=== PATIENT | female | born 1960 | race Two or more races ===

== ENCOUNTER 2024-05-21 10:43 | Inpatient (IN) | payer MEDICARE, OTHER ==
[~2024-05-21] VITALS: Ht 162.6 cm; Wt 102.1 kg
[2024-05-21 11:34] LABS: CALCIUM, SERUM 8.9 mg/dL (8.5-10.1); CARBON DIOXIDE 26 mmol/L (21-32); CHLORIDE 106 mmol/L (98-107); CREATININE 0.9 mg/dL (0.6-1.3); GLUCOSE 94 mg/dL (74-106); POTASSIUM 5.3 mmol/L (3.5-5.1); SODIUM SERUM 136 mmol/L (136-145); UREA NITROGEN, BLOOD 27 mg/dL (7-18)
[2024-05-21 11:37] LABS: ALCOHOL, BLOOD < 3 mg/dL (0-10)
[2024-05-21 11:38] LABS: BASOPHILS # (AUTO) 0.1 K/uL (0.0-0.2); BASOPHILS % (AUTO) 0.5 % (0.0-2.0); EOSINOPHILS # (AUTO) 0.2 K/uL (0.0-0.7); EOSINOPHILS % (AUTO) 1.2 % (0.0-6.0); HEMATOCRIT 43 % (33-45); HEMOGLOBIN 13.9 g/dL (11.5-14.8); LYMPHOCYTES # (AUTO) 1.9 K/uL (0.8-4.8); LYMPHOCYTES % (AUTO) 13.5 % (20.0-44.0); MEAN CORPUSCULAR HEMOGLOBIN 29 PG (26.0-33.0); MEAN CORPUSCULAR HGB CONC 33 g/dl (31.0-36.0); MEAN CORPUSCULAR VOLUME 87 fL (82-100); MONOCYTES # (AUTO) 0.8 K/uL (0.1-1.30); MONOCYTES % (AUTO) 5.8 % (2.0-12.0); NEUTROPHILS # (AUTO) 11.1 K/uL (1.8-8.9); PLATELET COUNT (AUTO) 238 K/uL (150-450); RED BLOOD CELL COUNT(AUTO) 4.86 MIL/uL (4.0-5.2); RED CELL DISTRIBUTION WIDTH 14.8 % (11.5-15.0); WHITE BLOOD COUNT (AUTO) 14.1 K/uL (4.3-11.0)
[2024-05-21 11:39] LABS: ALANINE AMINOTRANSFERASE 19 U/L (12-78); ALCOHOL, BLOOD < 3 mg/dL (0-10); ALKALINE PHOSPHATASE 140 U/L (46-116); ASPARTATE AMINOTRANSFERASE 29 U/L (15-37); BILIRUBIN,TOTAL 0.7 mg/dL (0.2-1.0); TOTAL PROTEIN, SERUM 7.2 g/dL (6.4-8.2)
[2024-05-21 11:40] LABS: SALICYLATE 0.2 mg/dL (2.8-20.0)
[2024-05-21] MEDS ORDERED: IOHEXOL-300 100 ML VIAL IV ONE (13:03)
[2024-05-21] MEDS ORDERED: IV NS 0.9% 250 ML IV ONE (13:04)
[2024-05-21 13:18] LABS: ALBUMIN 3.1 g/dL (3.4-5.0)
[2024-05-21] MEDS ORDERED: CITA20TA16 PO (13:21)
[2024-05-21] MEDS ORDERED: CLOP75TA15 PO (13:21)
[2024-05-21] MEDS ORDERED: TRAZ-252 PO (13:21)
[2024-05-21] MEDS ORDERED: BACL20TA PO (13:21)
[2024-05-21] MEDS ORDERED: ASPI-1169 PO (13:21)
[2024-05-21] MEDS ORDERED: PANT20TA2 PO (13:21)
[2024-05-21] MEDS ORDERED: BUPR100T7 PO (13:21)
[2024-05-21] MEDS ORDERED: ATOR80TA PO (13:21)
[2024-05-21 13:28] LABS: ACETAMINOPHEN <10 ug/ml (10-30); BILIRUBIN,DIRECT 0.1 mg/dL (0.0-0.2)
[2024-05-21] MEDS: PIPERACILLIN /TAZOBACTAM 3.375 G in IV D5W 50 ML IV ONE (13:30)
[2024-05-21 13:50] LABS: APPEARANCE,URINE SLIGHTLY CLOUDY (CLEAR); BILIRUBIN,URINE NEGATIVE (NEGATIVE); BLOOD, URINE NEGATIVE Ery/uL (NEGATIVE); COLOR,URINE YELLOW (YELLOW); KETONES,URINE NEGATIVE (NEGATIVE); LEUKOCYTE ESTERASE ,URINE 1+ (NEGATIVE); NITRITE, URINE NEGATIVE (NEGATIVE); PROTEIN,URINE NEGATIVE (NEGATIVE); UGLUCOSE NEGATIVE (NEGATIVE); UROBILINOGEN,URINE 0.2 EU/dL (0.2)
[2024-05-21] MEDS ORDERED: SODIUM ZIRCONIUM CYCLOSILICATE 10 GM POWD.PACK ONE (13:58)
[2024-05-21] MEDS ORDERED: PIPERACI/TAZO 3.375GM/D5W 50ML PB IV ONE (13:58)
[2024-05-21] MEDS ORDERED: ACETAMINOPHEN 325 MG TABLET PO PRN (14:00)
[2024-05-21] MEDS: SODIUM ZIRCONIUM CYCLOSILICATE 5 GM POWD.PACK PO ONE (14:00)
[2024-05-21] MEDS ORDERED: ONDANSETRON HCL/PF 4 MG/2 ML VIAL IVP PRN (14:00)
[2024-05-21] MEDS ORDERED: hydrALAZINE HCL IV 20 MG VIAL IV PRN (14:00)
[2024-05-21] MEDS ORDERED: MORPHINE SULFATE INJ 2 MG/ML DISP.SYRIN IV PRN (14:00)
[2024-05-21] MEDS ORDERED: SODIUM ZIRCONIUM CYCLOSILICATE 5 GM POWD.PACK ONE (14:03)
[2024-05-21 14:09] LABS: AMPHETAMINE, URINE NEGATIVE (NEGATIVE); BARBITURATE, URINE NEGATIVE (NEGATIVE); BENZODIAZEPINE, URINE NEGATIVE (NEGATIVE); COCCAINE, URINE NEGATIVE (NEGATIVE); OPIATE, URINE NEGATIVE (NEGATIVE); PHENCYCLIDINE SCREEN,URINE NEGATIVE (NEGATIVE)
[2024-05-21 14:31] LABS: CANNABINOID, URINE POSITIVE (NEGATIVE)
[2024-05-21 14:40] LABS: ADD URINE CULTURE YES; BACTERIA,URINE Many /HPF (None Seen); RBC,URINE 0-2 /HPF (0-2); WBC,URINE 21-50 /HPF (0-3)
[2024-05-21 17:20] VITALS: BP 120/68; TEMP 98.2; O2SAT 96
[2024-05-21] MEDS: VANCOMYCIN 1 GM in IV D5W 250ml IV ONE ×2 (18:03→19:11)
[2024-05-21 20:00] VITALS: BP 114/58; TEMP 98.1; O2SAT 96
[2024-05-21] MEDS: CEFEPIME 2 GM in IV D5W 100 ML IV SCH (20:23)
[2024-05-21] MEDS: buPROPion SR 100 MG TABLET.ER PO SCH (21:40)
[2024-05-21] MEDS: TRAZODONE 50 MG TABLET PO SCH (21:41)
[2024-05-21] MEDS: ATORVASTATIN 40 MG TABLET PO SCH (21:41)
[2024-05-21] MEDS: HEPARIN SODIUM, PORCINE 5000 UNITS/1 ML VIAL SQ SCH (21:42)
[2024-05-22] VITALS: BP 113/70; TEMP 98.1; O2SAT 97
[2024-05-22 04:00] VITALS: BP 112/70; TEMP 98.1; O2SAT 98
[2024-05-22] MEDS: VANCOMYCIN 1 GM in IV D5W 250ml IV SCH (05:01)
[2024-05-22 07:39] LABS: BASOPHILS % (AUTO) 0.4 % (0.0-2.0); EOSINOPHILS # (AUTO) 0.1 K/uL (0.0-0.7); EOSINOPHILS % (AUTO) 2.2 % (0.0-6.0); HEMATOCRIT 40 % (33-45); HEMOGLOBIN 13.1 g/dL (11.5-14.8); LYMPHOCYTES # (AUTO) 0.9 K/uL (0.8-4.8); LYMPHOCYTES % (AUTO) 14.1 % (20.0-44.0); MEAN CORPUSCULAR HEMOGLOBIN 28 PG (26.0-33.0); MEAN CORPUSCULAR HGB CONC 33 g/dl (31.0-36.0); MEAN CORPUSCULAR VOLUME 87 fL (82-100); MONOCYTES # (AUTO) 0.4 K/uL (0.1-1.30); MONOCYTES % (AUTO) 6.2 % (2.0-12.0); NEUTROPHILS # (AUTO) 4.7 K/uL (1.8-8.9); NEUTROPHILS % (AUTO) 77.1 % (43.0-81.0); PLATELET COUNT (AUTO) 208 K/uL (150-450); RED BLOOD CELL COUNT(AUTO) 4.66 MIL/uL (4.0-5.2); RED CELL DISTRIBUTION WIDTH 14.8 % (11.5-15.0); WHITE BLOOD COUNT (AUTO) 6.1 K/uL (4.3-11.0)
[2024-05-22 07:46] LABS: ALBUMIN 2.8 g/dL (3.4-5.0); BILIRUBIN,TOTAL 0.6 mg/dL (0.2-1.0); CALCIUM, SERUM 8.8 mg/dL (8.5-10.1); MAGNESIUM 1.9 mg/dL (1.8-2.4); PHOSPHORUS 3.1 mg/dL (2.5-4.9); POTASSIUM 4.1 mmol/L (3.5-5.1); TOTAL PROTEIN, SERUM 6.4 g/dL (6.4-8.2)
[2024-05-22 08:00] VITALS: BP 137/84; TEMP 98.2; O2SAT 96
[2024-05-22] MEDS: CITALOPRAM HYDROBROMIDE 20 MG TABLET PO SCH (08:18)
[2024-05-22] MEDS: PANTOPRAZOLE 40 MG TABLET.DR PO SCH (08:18)
[2024-05-22] MEDS: ASPIRIN 81 MG TAB.CHEW PO SCH (08:18)
[2024-05-22] MEDS: CLOPIDOGREL BISULFATE 75 MG TABLET PO SCH (08:18)
[2024-05-22] MEDS: BACLOFEN (10 MG) 10 MG TABLET PO PRN (10:11)
[2024-05-22] MEDS ORDERED: LEVO750T46 PO ×2 (10:49→16:31)
[2024-05-22 12:00] VITALS: BP 127/92; TEMP 98.4; O2SAT 99
== END 2024-05-22 17:32 | DRG 871 ==
LOC: ER 10:52 → TELE 14:14 → TELE1 15:57
PROVIDERS: ADMIT Internal Medicine; ATTEND Internal Medicine
DX: A41.9 Sepsis, unspecified organism (principal); J12.9 Viral pneumonia, unspecified; J96.01 Acute respiratory failure with hypoxia; N39.0 Urinary tract infection, site not specified; E44.1 Mild protein-calorie malnutrition; I69.354 Hemiplegia and hemiparesis following cerebral infarction affecting left non-dominant side; E87.5 Hyperkalemia; E88.09 Other disorders of plasma-protein metabolism, not elsewhere classified; G47.00 Insomnia, unspecified; G93.89 Other specified disorders of brain; I10 Essential (primary) hypertension; Z20.822 Contact with and (suspected) exposure to COVID-19; I25.10 Atherosclerotic heart disease of native coronary artery without angina pectoris; E78.5 Hyperlipidemia, unspecified; F12.10 Cannabis abuse, uncomplicated; B96.4 Proteus (mirabilis) (morganii) as the cause of diseases classified elsewhere; Z66 Do not resuscitate
CPT/HCPCS: 36415; 70450-TC; 71045-TC; 71260-TC; 80048-TC; 80053-TC; 80076-TC; 81001; 83605-TC; 83735-TC; 84100-TC; 84443-TC; 84484-TC; 85025-TC; 87040-TC; 87081-TC; 87086-TC; 87186-TC; 97110-TC; 97116-TC; 97530-TC; 97535-TC; A4223; G0378; G0480; J0692; J1644; J2543; J3370; J7050; J7060; Q9967

== ENCOUNTER 2024-05-22 16:18 | Inpatient (IN) | payer MEDICARE, OTHER ==
[~2024-05-22] VITALS: Ht 162.6 cm; Wt 104.8 kg
[2024-05-22 16:00] VITALS: BP 126/63; TEMP 98; O2SAT 97
[~2024-05-22 16:18] MED LIST: ASPI-1169 PO; ATOR80TA PO; BACL20TA PO; BUPR100T7 PO; CITA20TA16 PO; CLOP75TA15 PO; LEVO750T46 PO; PANT20TA2 PO; TRAZ-252 PO
[2024-05-22] MEDS ORDERED: LEVO750T46 PO (16:31)
[2024-05-22] MEDS ORDERED: MAG HYDROX/AL HYDROX/SIMETH 30 ML UDC PO PRN (17:00)
[2024-05-22] MEDS ORDERED: ACETAMINOPHEN 325 MG TABLET PO PRN (17:00)
[2024-05-22 17:20] VITALS: BP 126/63; TEMP 98; O2SAT 97
[2024-05-22] MEDS: BLOOD SUGAR DIAGNOSTIC 1 EACH STRIP IN ONE (17:36)
[2024-05-22] MEDS ORDERED: Z GUARD REMEDY 4 OZ OINT TP PRN (19:00)
[2024-05-22 20:07] VITALS: BP 118/79; TEMP 98.3; O2SAT 96
[2024-05-22] MEDS: Z GUARD REMEDY 4 OZ OINT TP SCH (20:29)
[2024-05-22] MEDS: ATORVASTATIN 40 MG TABLET PO SCH (21:41)
[2024-05-23] MEDS: PANTOPRAZOLE 40 MG TABLET.DR PO SCH (06:37)
[2024-05-23] MEDS: MAGNESIUM HYDROXIDE 30 ML UDC PO PRN (06:42)
[2024-05-23 07:26] LABS: CREATININE 0.9 mg/dL (0.6-1.3)
[2024-05-23 07:31] LABS: BILIRUBIN,TOTAL 0.6 mg/dL (0.2-1.0); CALCIUM, SERUM 9.1 mg/dL (8.5-10.1); CREATININE 0.9 mg/dL (0.6-1.3); POTASSIUM 4.2 mmol/L (3.5-5.1); TOTAL PROTEIN, SERUM 6.8 g/dL (6.4-8.2)
[2024-05-23 07:36] LABS: CHOLESTEROL 119 mg/dL (<200); HDL CHOLESTEROL 48 mg/dL (40-60); LDL 60 mg/dL (0-99); TRIGLYCERIDES 115 mg/dL (30-150)
[2024-05-23 08:00] VITALS: BP 129/82; TEMP 97.9; O2SAT 94
[2024-05-23] MEDS: LEVOFLOXACIN (250MG) 250 MG TABLET PO SCH (09:38)
[2024-05-23] MEDS: ASPIRIN 81 MG TAB.CHEW PO SCH (09:39)
[2024-05-23] MEDS: BACLOFEN (10 MG) 10 MG TABLET PO SCH (09:39)
[2024-05-23] MEDS: CLOPIDOGREL BISULFATE 75 MG TABLET PO SCH (09:39)
[2024-05-23 16:00] VITALS: BP 127/76; TEMP 98; O2SAT 95
[2024-05-23] MEDS: CITALOPRAM HYDROBROMIDE 20 MG TABLET PO SCH (17:07)
[2024-05-23 20:49] VITALS: BP 118/78; TEMP 98; O2SAT 95
[2024-05-23] MEDS: MIRTAZAPINE 15 MG TABLET PO SCH (21:20)
[2024-05-24 08:00] VITALS: BP 132/69; TEMP 98.6; O2SAT 96
[2024-05-24 16:00] VITALS: BP_SYST 107; BP_SYST 108; BP_DIAS 52; BP_DIAS 75; TEMP 97.7; TEMP 98; O2SAT 95
[2024-05-24 20:00] VITALS: BP 123/60; TEMP 98.2; O2SAT 96
[2024-05-24 20:33] VITALS: BP 123/69; TEMP 98.2; O2SAT 96
[2024-05-25 08:00] VITALS: BP 131/65; TEMP 97.8; O2SAT 99
[2024-05-25 16:00] VITALS: BP 103/62; TEMP 98.8; O2SAT 96
[2024-05-25] MEDS: VENLAFAXINE XR 37.5 MG CAP.SR.24H PO SCH (16:14)
[2024-05-25 19:48] VITALS: BP 115/64; TEMP 98.1; O2SAT 95
[2024-05-26 08:00] VITALS: BP 120/61; TEMP 98.2; O2SAT 99
[2024-05-26 10:16] LABS: FOLIC ACID 9.7 ng/mL (>3.0)
[2024-05-26 16:00] VITALS: BP 124/81; TEMP 98.7; O2SAT 98
[2024-05-26 20:53] VITALS: BP 104/63; TEMP 98.6; O2SAT 97
[2024-05-26 22:07] VITALS: BP 108/69; TEMP 98; O2SAT 96
[2024-05-26] MEDS: ZOLPIDEM TARTRATE 5 MG TABLET PO PRN (22:09)
[2024-05-27 08:00] VITALS: BP 134/77; TEMP 97.3; O2SAT 100
[2024-05-27 16:00] VITALS: BP 101/87; TEMP 98.7; O2SAT 98
[2024-05-27 20:12] VITALS: BP 100/54; TEMP 98.1; O2SAT 96
[2024-05-28 08:00] VITALS: BP 149/79; TEMP 97.9; O2SAT 95
[2024-05-28] MEDS: PANTOPRAZOLE 40 MG TABLET.DR PO SCH (08:48)
[2024-05-28 16:00] VITALS: BP 111/77; TEMP 97.9; O2SAT 99
[2024-05-28 20:00] VITALS: BP 109/65; TEMP 98.1; O2SAT 95
[2024-05-29 08:00] VITALS: BP 129/82; TEMP 97.7; O2SAT 98
[2024-05-29] MEDS: VENLAFAXINE XR 37.5 MG CAP.SR.24H PO SCH (08:43)
[2024-05-29 16:00] VITALS: BP 128/88; TEMP 98.6; O2SAT 98
[2024-05-29 20:19] VITALS: BP_SYST 104; BP_SYST 113; BP_DIAS 56; BP_DIAS 68; TEMP 98.8; O2SAT 96
[2024-05-30 08:00] VITALS: BP 105/78; TEMP 97.7; O2SAT 98
[2024-05-30 16:00] VITALS: BP 111/82; TEMP 97.7; O2SAT 95
[2024-05-30 20:46] VITALS: BP 112/65; TEMP 97.8; O2SAT 98
[2024-05-31 08:00] VITALS: BP 133/72; TEMP 98.2; O2SAT 100
[2024-05-31 15:45] VITALS: BP 129/99; TEMP 98; O2SAT 98
[2024-05-31 20:51] VITALS: BP 121/64; TEMP 98.1; O2SAT 97
[2024-06-01 08:00] VITALS: BP 116/79; TEMP 97.8; O2SAT 96
== END 2024-06-01 15:00 | DRG 885 ==
LOC: GPS 16:18
PROVIDERS: ADMIT Psychiatry & Neurology Psychosomatic Medicine; ATTEND Nurse Practitioner Family
DX: F33.2 Major depressive disorder, recurrent severe without psychotic features (principal); J15.9 Unspecified bacterial pneumonia; E44.0 Moderate protein-calorie malnutrition; I69.354 Hemiplegia and hemiparesis following cerebral infarction affecting left non-dominant side; I25.10 Atherosclerotic heart disease of native coronary artery without angina pectoris; E78.5 Hyperlipidemia, unspecified; G89.29 Other chronic pain; Z66 Do not resuscitate; F39 Unspecified mood [affective] disorder; R53.1 Weakness; G47.00 Insomnia, unspecified; Z68.39 Body mass index [BMI] 39.0-39.9, adult; M24.542 Contracture, left hand; E66.01 Morbid (severe) obesity due to excess calories; I10 Essential (primary) hypertension
CPT/HCPCS: 36415; 80053-TC; 80061-TC; 82565-TC; 82607-TC; 82962-TC; 83921; 84425; 87081-TC; 97110-TC; 97116-TC; 97530-TC